=== PATIENT | female | born 1985 | race Caucasian/White ===

== ENCOUNTER 2016-08-31 08:40 | Emergency (ER) | payer OTHER ==
[2016-08-31 09:24] VITALS: BP 149/62; PULSE 85; RESP 18; TEMP 98; O2SAT 98
--- NOTE | 2016-08-31 10:18 | UCPHY ---
H & P Time Seen by Provider: 08/31/16 09:53 Smoking Status: Never smoked Constitutional: Initial Vital Signs Temperature (C) 36.6 C 08/31/16 09:22 Heart Rate 85 08/31/16 09:22 Respiratory Rate 18 08/31/16 09:22 Blood Pressure 149/62 H 08/31/16 09:22 O2 Sat (%) 98 08/31/16 09:22 O2 Delivery Mode Room Air Allergies/Adverse Reactions: No Known Allergies Allergy (Unverified 08/31/16 09:21) Home Medications: Medication Instructions Recorded Amoxicillin/Clavulanate Pot 875 mg PO BID #20 tab 08/31/16 [Augmentin 875 MG TAB (*)] Medical Decision Making - Data Points Laboratory Results: 08/31/16 08/31/16 Unknown 10:00 Group A Strep Screen NEGATIVE (NEGATIVE) Group A Strep DNA Pending Departure - Departure Disposition: Home, Routine, Self-Care Clinical Impression: Acute sinusitis, Pharyngitis Condition: Good Instructions: Sinusitis (ED), Pharyngitis (ED) Referrals: NONE *PRIMARY CARE P,. [Primary Care Provider] - As per Instructions [facility] [Provider Group] - As per Instructions Prescriptions: Amoxicillin/Clavulanate Pot [Augmentin 875 MG TAB (*)] 875 mg PO BID #20 tab - PQRS PQRS Measurement: na
== END 2016-08-31 10:34 | disposition home or self-care (01) ==
LOC: CED 08:40
DX: J01.90 Acute sinusitis, unspecified (principal); J02.9 Acute pharyngitis, unspecified
CPT/HCPCS: 87880-PO; G0463-PO

== ENCOUNTER 2016-10-20 18:50 | Emergency (ER) | payer OTHER ==
[2016-10-20 19:12] VITALS: BP 113/82; PULSE 86; RESP 16; TEMP 98.6; O2SAT 96
--- NOTE | 2016-10-20 20:12 | UCPHY ---
H & P Time Seen by Provider: 10/20/16 19:29 Patient Type: Established HPI/ROS: This patient injured her knee 2 and half weeks ago skiing. She reports that she caught injured side edge and fell with valgus stress to her knee the ski did not release. She was traveling at low to moderate speed when the injury occurred. She was able to ski the rest of the way down. She did have a sense that there might have been a pop in the region just inferior to the knee or at the knee. Since then she has had persistent mild pain 2/10 that increases to 5/ 10 at times with walking. She describes this as just inferior and slightly lateral to the patella. With certain movements that seem unpredictable she has increased pain beyond the 5/10 that are described as fleeting. ROS: She denies any feeling of laxity to the knee. She reports no numbness. She does report worsening of symptoms when she climbs stairs. No ankle pain. No hip pain. 5 point ROS is otherwise negative. Past Medical/Surgical History: Otherwise healthy. No previous left knee injuries. Smoking Status: Never smoked Physical Exam: Physical Exam Vital signs are normal. General: No acute distress Eyes: Pupils equal and react to light. Extraocular motions are intact. Lungs: No respiratory distress. Cardiac: Brisk capillary refill is intact throughout. Pulses are 2+ and symmetric in the affected extremity. Skin: No rash or pallor. Extremities: Atraumatic normal except for left knee Left knee: Patient has no knee effusion on my exam. No laxity with Stu's exam, varus or valgus stress. No increase in pain with those maneuvers. She does have tenderness just inferior and lateral to the patella. No crepitance is noted. Neuro: Alert with no sensorimotor deficits to the affected extremity. Initial differential diagnosis: Subacute fracture, meniscal injury, patellar ligament strain, contusion Constitutional: Initial Vital Signs Temperature (C) 37 C 10/20/16 19:00 Heart Rate 86 10/20/16 19:00 Respiratory Rate 16 10/20/16 19:00 Blood Pressure 113/82 H 10/20/16 19:00 O2 Sat (%) 96 10/20/16 19:00 O2 Delivery Mode Room Air Allergies/Adverse Reactions: No Known Allergies Allergy (Verified 10/20/16 19:11) Home Medications: Medication Instructions Recorded NK [No Known Home Meds] 10/20/16 MDM/Departure - MDM Diagnostics: Imaging Impressions Knee X-Ray 10/20/16 19:20 Impression: Negative for fracture. If symptoms persist, MRI could be considered for further evaluation. Imaging Results: Imaging Impressions Knee X-Ray 10/20/16 19:20 Impression: Negative for fracture. If symptoms persist, MRI could be considered for further evaluation. I read the knee x-ray is negative for fracture. ED Course/Re-evaluation: Discussion: Knee injury of unclear etiology without evidence of fracture or significant ligamentous injury clinically. I recommended she follow up with orthopedics for further evaluation we placed her in a neoprene splint for comfort. - Depart Disposition: Home, Routine, Self-Care Clinical Impression: Knee injury Qualifiers: Encounter type: initial encounter Laterality: left Qualified Code(s): S89.92XA - Unspecified injury of left lower leg, initial encounter Condition: Good Instructions: Knee Sprain (ED) Additional Instructions: Diagnosis: Knee injury Your knee x-ray appears normal today Plan: Continue ibuprofen and Tylenol for discomfort as needed Neoprene brace for comfort Call Dr. Ohara-compliance specialist arrange follow-up appointment for further evaluation. Limit activity as needed in the meantime. Cane or crutches if you're having significant pain with walking. Referrals: NONE *PRIMARY CARE P,. [Primary Care Provider] - As per Instructions Esdras Ohara MD [Medical Doctor] - As per Instructions - PQRS PQRS Measurement: NA
== END 2016-10-20 20:21 | disposition home or self-care (01) ==
LOC: CED 18:50
DX: S89.92XA Unspecified injury of left lower leg, initial encounter (principal); V00.321A Fall from snow-skis, initial encounter; Y93.23 Activity, snow (alpine) (downhill) skiing, snowboarding, sledding, tobogganing and snow tubing
CPT/HCPCS: 73564-PO; G0463-PO

== ENCOUNTER 2016-11-12 19:07 | Emergency (ER) | payer OTHER ==
--- NOTE | 2016-11-12 19:10 | EDPHY ---
H & P HPI/ROS: HPI CHIEF COMPLAINT: Left foot ecchymosis and swelling HISTORY OF PRESENT ILLNESS: Patient very pleasant 31-year-old female no significant medical or surgical history presents to the emergency room with ongoing left foot swelling and ecchymosis since Wednesday. Patient states she was moving an industrial shelf and a piece of metal fell on her foot she was wearing minimal shoe. Flats. She states she has been walking on it ever since however family encouraged her to seek medical attention at out the concern of how much ecchymosis she has. She does tell me she has pain but is able to bear weight. Denies any other areas of injury. Pain is located mid foot dorsum. Patient tells me this injury happened Wednesday. Or 4 days ago. She has been walking on it since. Past Medical History: No significant medical history Past Surgical History: No significant surgical history Social History: Denies daily use of drugs alcohol tobacco products Family History: Noncontributory ROS REVIEW OF SYSTEMS: A comprehensive 10 point review of systems is otherwise negative aside from elements mentioned in the history of present illness. Exam Constitutional triage nursing summary reviewed, vital signs reviewed, awake/ alert. Eyes normal conjunctivae and sclera, EOMI, PERRLA. HENT normal inspection, atraumatic, moist mucus membranes, no epistaxis, neck supple/ no meningismus, no raccoon eyes. Respiratory clear to auscultation bilaterally, normal breath sounds, no respiratory distress, no wheezing. Cardiovascular rate normal, regular rhythm, no murmur, no edema, distal pulses normal. Gastrointestinal soft, non-tender, no rebound, no guarding, normal bowel sounds, no distension, no pulsatile mass. Genitourinary no CVA tenderness. Musculoskeletal left foot: Soft, compartment soft, significant ecchymosis throughout the left foot dorsal aspect including her 2nd and 3rd toe ecchymosis extends from 2nd and 3rd toe to the ankle over the dorsum of the foot, it is neurovascularly intact, good pulse, good sensation, soft compartments, no signs of compartment syndrome, no midline vertebral tenderness, full range of motion, no calf swelling, no tenderness of extremities, no meningismus, good pulses, neurovascularly intact. Skin pink, warm, & dry, no rash, skin atraumatic. Neurologic awake, alert and oriented x 3, AAOx3, moves all 4 extremities equally, motor intact, sensory intact, CN II-XII intact, normal cerebellar, normal vision, normal speech. Psychiatric normal mood/affect. Heme/Lymph/Immune no lymphadenopathy. Differential Diagnosis: Includes but is not limited to in a particular order, foot contusion, soft tissue injury, fracture Medical Decision Making: Plan for this patient x-ray left foot. Re-evaluation: ED x-ray left foot three view: No visible acute fracture. 193: Given no visible fracture on x-ray will place patient on walking boot for comfort. Follow-up Podiatry at her convenience. She does have bruising I do recommend try to keep it elevated, ice it return if any worsening symptoms questions concerns including pain or swelling. No visible fracture on x-ray. Placed a walking boot podiatry referral if needed. Source: Patient - Personal History Tetanus Vaccine Date: within 10 years - Medical/Surgical History Hx Asthma: No Hx Chronic Respiratory Disease: No Hx Diabetes: No Hx Cardiac Disease: No Hx Renal Disease: No Hx Cirrhosis: No Hx Alcoholism: No Hx HIV/AIDS: No Hx Splenectomy or Spleen Trauma: No Other PMH: sinus surg/ear tubes - Social History Smoking Status: Never smoked Constitutional: Initial Vital Signs Temperature (C) 36.8 C 11/12/16 19:24 Heart Rate 85 11/12/16 19:24 Respiratory Rate 16 11/12/16 19:24 Blood Pressure 157/80 H 11/12/16 19:24 O2 Sat (%) 96 11/12/16 19:24 O2 Delivery Mode Room Air Allergies/Adverse Reactions: No Known Allergies Allergy (Verified 10/20/16 19:11) Home Medications: Medication Instructions Recorded NK [No Known Home Meds] 10/20/16 Departure - Departure Disposition: Home, Routine, Self-Care Clinical Impression: Contusion of foot, left Qualifiers: Encounter type: initial encounter Qualified Code(s): S90.32XA - Contusion of left foot, initial encounter Condition: Good Instructions: Foot Contusion (ED) Additional Instructions: 1. Recommend icing your foot. 2. Follow up with a foot doctor as needed. 3. Recommend keeping her foot elevated, ice it, return emergency room there is any worsening symptoms questions or concerns. Use walking boot for comfort. Referrals: NONE *PRIMARY CARE P,. [Primary Care Provider] - As per Instructions Avinash Zamora DPM [Doctor of Podiatric Medicine] - As per Instructions
[2016-11-12 19:26] VITALS: BP 157/80; PULSE 85; RESP 16; TEMP 98.2; O2SAT 96
== END 2016-11-12 19:50 | disposition home or self-care (01) ==
LOC: CED 19:07
DX: S90.32XA Contusion of left foot, initial encounter (principal); W20.8XXA Other cause of strike by thrown, projected or falling object, initial encounter
CPT/HCPCS: 73630-PO; L4386